=== PATIENT | female | born 1990 | race Caucasian/White ===

== ENCOUNTER 2020-04-25 19:26 | Outpatient (CLI) | payer OTHER, SELFPAY ==
--- NOTE | ~2020-04-25 | MR_ITS ---
EXAMINATION: MR brain/brain stem wo/w con DATE: 04/25/2020 21:03 INDICATION: Hyperprolactinemia. TECHNIQUE: Magnetic resonance imaging (MRI) of the brain and brainstem was performed without and with 10 mL MultiHance intravenous contrast. Whole-brain sequences included sagittal T1-weighted FSE, axia l diffusion-weighted FS EPI, axial T2*-weighted GRE, axial T2-weighted FLAIR Propeller, and axial T2- weighted Propeller. Small hjbdl-gk-flov sequences included sagittal and coronal T1-weighted FSE cente red at the pituitary. Postcontrast sequences included small vyptv-ue-[id number] coronal T1-weighted FSE in a time course and sagittal T1-weighted FSE and whole-brain axial T1-weighted FSE. Apparent diffusion coefficient (ADC) maps were created. COMPARISON: None. FINDINGS: The pituitary is normal in size with height of 6 mm and concave superior margin. The infund ibulum is at the midline. There is no intracranial hemorrhage, acute infarction, or abnormal intracra nial mass lesion. The ventricles are normal in size. The orbits are normal. The paranasal sinuses are clear. The mastoid air cells are normal. IMPRESSION: 1. Normal brain. Normal pituitary. Reviewed, dictated and finalized at location A.
[2020-04-25 20:21] LABS: Estimated Glomerular Filt Rate > 60
== END 2020-04-25 19:27 | disposition home or self-care (01) ==
PROVIDERS: PCP Family Medicine; Visit Provider Physician Assistant
DX: E22.1 Hyperprolactinemia (principal)
CPT/HCPCS: 36415; 70553; A9577

== ENCOUNTER 2022-03-05 10:25 | Emergency (ER) | payer BC, SELFPAY ==
--- NOTE | 2022-03-05 10:28 | ED.URI ---
HPI - URI/Sore Throat General Chief Complaint: Upper Respiratory Infection Stated Complaint: Sore Throat,Runny Nose,Congestion Time Seen by Provider: 03/05/22 10:28 Source: patient Mode of arrival: ambulatory Limitations: no limitations History of Present Illness HPI Narrative: Ms. Martinez is a 31-year-old female patient presenting to the clinic today with complaints of cough, sore throat, and congestion x4 days. She reports no known exposure to anyone with COVID, flu, or strep. Is concerned that she may have strep throat. She denies any fever or chills. MD elicited complaint: cough, sore throat and nasal congestion Related Data Home Medications Medication Instructions Recorded Confirmed doxycycline hyclate 50 mg PO DAILY 03/05/22 03/05/22 Allergies Allergy/AdvReac Type Severity Reaction Status Date / Time No Known Allergies Allergy Verified 03/05/22 10:49 Review of Systems Review of Systems: Pertinent positives per HPI. Patient denies any fever, chills, rash, headache, visual changes, dizziness, shortness of breath, chest pain, palpitations, nausea, vomiting, diarrhea, constipation, abdominal pain, or any urinary issues. [facility] Past Medical History Medical History (Updated 03/05/22 @ 11:04 by Daryl Wheat APRN) Gave to child recently 01/27/2019 Surgical History Surgical History H/O dilation and curettage (~2018) Family History Family History Grandparent Family history of elevated blood lipids Social History Social History Smoking status: Never smoker Alcohol intake: current Drinks per week: 4 Alcohol use details: beer wine Comments At the time of my signature, I reviewed and agree with the nursing past medical, surgical, social, and family history. There is no relevant family history pertinent to the patient complaint. Exam Narrative: General: Well-developed, well nourished, in no apparent distress Head: Normocephalic, atraumatic Eyes: Pupils equally round and reactive to light bilaterally, EOM intact, sclera and conjunctive clear, no discharge, lids normal Ears: TMs intact and clear, ear canals clear, no drainage, grossly hearing normal. Nose: Nares patent, clear nasal discharge, moderate inflammation, no sinus tenderness. Mouth: Oral pharynx without masses, good dentition, MMM. Postnasal drip, 1 small white ulcerated area to the left oropharynx Neck: Supple, trachea midline, no enlargement of anterior or posterior cervical nodes, no thyroid masses or goiter palpable. Cardio: Regular rate and rhythm, s1 and s2 normal, no murmur appreciated. Resp: Clear to auscultation bilaterally, no rhonchi, rales, wheezing or rubs Course Course Emergency Course: Portions of this record may have been created with voice recognition software. Level of Care: Express Care Visit Vital Signs Vital signs: Vital signs reviewed MDM - URI/Sore Throat MDM Narrative Medical decision making narrative: At the time of visit patient is resting comfortably on the exam table. She reports cough, congestion, and sore throat x4 days. Is concerned that she may have a strep throat. Strep screen was completed and is negative in the clinic. She appears to have an upper respiratory infection/pharyngitis and supportive measures were discussed with patient and she voiced understanding of discharge instructions. Differential Diagnosis Differential diagnosis: Likely upper respiratory infection, croup, otitis media, sinusitis, viral infection, bronchitis, influenza and pharyngitis Discharge Plan Discharge Clinical Impression: Upper respiratory infection Qualifiers: URI type: unspecified URI Qualified Code(s): J06.9 - Acute upper respiratory infection, unspecified Pharyngitis Qualifiers: Pharyngitis/tonsillitis et
[2022-03-05 10:35] VITALS: BP 108/78; PULSE 81; RESP 18; TEMP 37.2; O2SAT 100
== END 2022-03-05 11:12 | disposition home or self-care (01) ==
PROVIDERS: Emergency Provider Nurse Practitioner Family; PCP Family Medicine
DX: J06.9 Acute upper respiratory infection, unspecified (principal); J02.9 Acute pharyngitis, unspecified
CPT/HCPCS: 87081; 87880; 99213; G0463

== ENCOUNTER 2022-05-30 22:22 | Emergency (ER) | payer BC, SELFPAY ==
--- NOTE | ~2022-05-30 | XR_ITS ---
XR chest 2V 05/30/2022 23:49 Indication: Chest pain. Procedure: 2 view chest Comparison: No prior studies for comparison. Findings: Prominent left nipple shadow. Scoliosis. Heart size normal. No focal air space disease, pul monary edema, pleural effusion or suspected pneumothorax. Impression: 1: No acute cardiopulmonary disease. Reviewed, dictated and finalized at location A. Impression: 1: No acute cardiopulmonary disease.
--- NOTE | ~2022-05-30 | CT_ITS ---
EXAMINATION: CT abdomen pelvis w con DATE: 05/30/2022 23:46 INDICATION: Lower abdominal pain TECHNIQUE: Computed tomography (CT) of the abdomen and pelvis was performed without intravenous contr ast. The dose-length product was 228.53 mGy-cm. Automated exposure control and iterative reconstructi on technique were employed. COMPARISON: None. FINDINGS: Lung bases are unremarkable. Heart size normal. No significant vascular abnormality. No lym phadenopathy. There is 1.9 cm left adnexal cyst, likely ovarian. Prominent parametrial vessels are no destinee. Small amount of free fluid in the pelvis. The liver, spleen, pancreas, adrenal glands and kidneys are unremarkable. Gallbladder is present. The re is a left lower quadrant enteroenteric intussusception noted just above the left iliac fossa which may represent incidental transient intussusception. No significant bowel distention to suggest obstr uction. IMPRESSION: 1. 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 2: Left adnexal cyst measuring 1.9 cm, likely ovarian. Trace free fluid in the pelvis. Reviewed, dictated and finalized at location A.
[2022-05-30 22:24] VITALS: BP 116/72; PULSE 60; RESP 16; TEMP 37; O2SAT 99
--- NOTE | 2022-05-30 22:27 | ECG_ITS ---
Measurements Intervals [place] Rate: 64 P: 67 IN: 187 QRS: 75 QRSD: 109 T: 73 QT: 383 QTc: 397 Interpretive Statements SINUS RHYTHM INCOMPLETE RIGHT BUNDLE BRANCH BLOCK BORDERLINE ECG Electronically Signed On 05-31-2022 7:27:55 CDT by Edis Hanley D.O.
[2022-05-30 22:41] LABS: Basophils Percent Auto 0.4 % (0.2-1.2); Eosinophils Percent Auto 0.3 % (0-4.4); Hematocrit 37.2 % (37.0-47.0); Hemoglobin 12.1 g/dL (12.0-15.0); Immature Granulocyte Absolute 0.01 K/mm3 (0.00-0.031); Immature Granulocyte Percent A 0.1 % (0-0.5); Lymphocytes Absolute Auto 1.96 K/mm3 (0.9-3.2); Lymphocytes Percent Auto 27.2 % (18.3-44.2); Mean Corpuscular HGB Conc 32.5 g/dl (32-36); Mean Corpuscular Hemoglobin 29.5 pg (26-34); Mean Corpuscular Volume 90.7 fl (80-100); Monocytes Absolute Auto 0.4 K/mm3 (0.1-0.6); Monocytes Percent Auto 5.3 % (2.6-8.5); Neutrophils Absolute Auto 4.8 K/mm3 (1.3-6.7); Neutrophils Percent Auto 66.7 % (45.5-73.1); Platelet Count Result 271 k/mm3 (150-375); Red Cell Distribution Width 12.5 % (11.5-14.5); White Blood Count 7.2 K/mm3 (4.5-10.0)
[2022-05-30 22:50] LABS: Alanine Aminotransferase 14 U/L (6-35); Albumin Level 4.7 g/dL (3.5-5.1); Alkaline Phosphatase 53 U/L (38-126); Anion Gap 9 mmol/L (8-16); Aspartate Amino Transferase 19 U/L (14-36); Bilirubin,Total 0.7 mg/dL (0.2-1.3); Blood Urea Nitrogen 8 mg/dL (7-17); Calcium 9.2 mg/dL (8.4-10.2); Carbon Dioxide 26 mmol/L (22-30); Chloride 103 mmol/L (98-107); Estimated CRCL calculation 76 ml/min; Estimated Glomerular Filt Rate > 60; Glucose 94 mg/dL (65-110); Lipase 140 U/L (23-300); Sodium 138 mmol/L (137-145)
--- NOTE | 2022-05-30 22:50 | ED.CHESTPAIN ---
HPI - Chest Pain General Chief Complaint: Chest Pain Stated Complaint: Chest and back pain Time Seen by Provider: 05/30/22 22:31 History of Present Illness HPI narrative: 32-year-old female presents to the emergency room for evaluation of midsternal chest pain that is worse after eating and when laying flat. Reports pain radiates into the back. Pain has been present intermittently since 2:00 this afternoon. States pain lasts for about 30 minutes and describes it as a squeezing and viselike. Pain is not preceded by any factors. Has never had the pain before. Also is complaining of lower abdominal pain, describes it as cramping. Denies any dysuria, constipation or diarrhea. Patient denies fevers. Related Data Home Medications Medication Instructions Recorded Confirmed doxycycline hyclate 50 mg capsule 50 mg PO DAILY 03/05/22 03/05/22 Allergies Allergy/AdvReac Type Severity Reaction Status Date / Time No Known Allergies Allergy Verified 05/30/22 22:26 Review of Systems Review of Systems: CONSTITUTIONAL: Denies fever, chills, or sweats. EYES: Denies visual changes, redness, or discharge. ENT: Denies rhinorrhea, congestion, sore throat, or otalgia. CARDIOVASCULAR: Denies chest pain, palpitations, or edema. RESPIRATORY: Denies cough or dyspnea. GASTROINTESTINAL: Reports lower abdominal pain, epigastric GENITOURINARY: Denies dysuria or hematuria. SKIN: Denies rash or itching. MUSCULOSKELETAL: Denies back pain, joint pain, or myalgia. NEUROLOGIC: Denies headache, numbness, dizziness, or weakness. PSYCHIATRIC: Denies anxiety or depression. [facility] Past Medical History Medical History (Updated 05/31/22 @ 00:52 by Augustus Edward APRN) Gave to child recently 01/27/2019 Surgical History Surgical History H/O dilation and curettage (~2018) Family History Family History Grandparent Family history of elevated blood lipids Social History Social History Smoking status: Never smoker Alcohol intake: current Drinks per week: 4 Alcohol use details: beer wine Exam Narrative: GENERAL: Well-appearing, well-nourished, no physical limitations, and in no acute distress. HEAD: Normocephalic, atraumatic. EYES: Conjunctivae normal, PERRLA and EOMI. NECK: Supple. No adenopathy or masses CHEST: Clear to auscultation. No respiratory distress. No wheezes rales or rhonchi. No tenderness. HEART: Regular rate and rhythm. No murmur heard. Normal peripheral pulses. ABDOMEN: Soft, lower abdominal tenderness, nondistended, normal active bowel sounds. EXTREMITIES: Normal range of motion. No edema. No clubbing or cyanosis SKIN: Warm, dry, no rash. No noted wounds NEURO: No focal deficits. Alert and oriented x3. MAEW. CN's II-XI intact bilaterally, normal gait PSYCH: Cooperative. Normal mood and affect. Course Vital Signs Vital signs: Vital Signs Temperature 37.0 C 05/30/22 22:24 Pulse Rate 60 05/30/22 22:24 Respiratory Rate 16 05/30/22 22:24 Blood Pressure 116/72 05/30/22 22:24 Pulse Oximetry 99 05/30/22 22:24 Temperature 37.0 C 05/30/22 22:24 Pulse Rate 72 05/31/22 01:13 Respiratory Rate 18 05/31/22 01:13 Blood Pressure 120/73 05/31/22 01:13 Pulse Oximetry 98 05/31/22 01:13 MDM - Chest Pain Lab Data Result diagrams: 05/30/22 22:36 05/30/22 22:36 Labs: Lab Results 05/30/22 05/30/22 05/30/22 Range/Units 22:36 22:36 22:36 WBC 7.2 (4.5-10.0) K/mm3 RBC 4.10 L (4.2-5.4) M/mm3 Hgb 12.1 (12.0-15.0) g/dL Hct 37.2 (37.0-47.0) % MCV 90.7 (80-100) fl MCH 29.5 (26-34) pg MCHC 32.5 (32-36) g/dl RDW 12.5 (11.5-14.5) % Plt Count 271 (150-375) k/mm3 MPV 10.0 (7.4-10.4) fl Immature Gran % (Auto) 0.1 (0-0.5) % Neut % (Auto
[2022-05-30 22:53] LABS: Partial Thromboplastin Time 31.6 SECONDS (22.3-36.8); Prothrombin Time 13.1 Seconds (11.1-14.7)
[2022-05-30 23:19] LABS: Troponin I < 0.012 ng/mL (0.000-0.034)
[2022-05-31] MEDS: BELLADONNA ALK/PHENOB ELIX 10 ML, MAG HYDROX/ALUMINUM HYD/SIMETH 30 ML, LIDOCAINE HCL 2... PO (00:18)
[2022-05-31 00:43] LABS: Appearance Urine Slightly Cloudy (Clear); Bilirubin Urine Negative (Negative); Blood Urine Trace-lysed (Negative); Glucose Urine UA Negative (Negative); Ketones Urine 2+ mg/dL (Negative); Leukocyte Esterase Ur 2+ LEU/UL (Negative); Nitrate Urine Negative (Negative); Protein Urine Negative (Negative); Specific Grav Ur 1.015 (1.001-1.035); Urobilinogen Urine 0.2 mg/dL (<2.0)
[2022-05-31 00:44] LABS: Add Urine Microscopic? YES; Color Urine Light Yellow (Yellow)
[2022-05-31 01:03] LABS: Bacteria Urine Trace /hpf; Mucus Urine Rare /lpf; Squamous Epithelial Cell Urine Many /hpf (Few)
[2022-05-31 01:13] VITALS: BP 120/73; PULSE 72; RESP 18; O2SAT 98
== END 2022-05-31 01:21 | disposition home or self-care (01) ==
PROVIDERS: Emergency Medicine; Emergency Provider Nurse Practitioner Family; PCP Family Medicine
DX: N83.202 Unspecified ovarian cyst, left side (principal); K21.9 Gastro-esophageal reflux disease without esophagitis; R10.9 Unspecified abdominal pain; K63.2 Fistula of intestine; I45.10 Unspecified right bundle-branch block
CPT/HCPCS: 36415; 71046; 74177; 80053; 81001; 81025; 83690; 84484; 85025; 85610; 85730; 93005; 99284; A9270; Q9967

== ENCOUNTER → 2022-06-04 08:12 | Outpatient (CLI) | payer BC, SELFPAY ==
--- NOTE | ~2022-06-04 | US_ITS ---
EXAMINATION: US abdomen complete DATE: 06/04/2022 08:56 INDICATION: Upper abdominal pain TECHNIQUE: Multiple grayscale and Doppler ultrasound images of the abdomen were obtained. COMPARISON: None available FINDINGS: Bowel gas obscures visualization of the pancreas. The visualized portions of the pancreas a re unremarkable. The liver is normal with normal echogenicity and echotexture. No surface nodularity. Normal hepatopetal flow in the main portal vein. The gallbladder is normal with no abnormal wall thi ckening, pericholecystic fluid or stones. The normal common bile duct measures 3 mm. There was no son ographic Rangel sign. The visualized portions of the aorta and inferior vena cava are normal. The right kidney measures 10.5 x 3.9 x 4.4 cm. The left kidney measures 11.5 x 5.5 x 4.7 cm. The kidn eys demonstrate normal parenchymal echogenicity. There is no hydronephrosis. The spleen is normal in appearance and measures 9.0 cm. IMPRESSION: 1. No sonographic correlate for the patient's symptoms. Reviewed, dictated and finalized at location B.
== END ==
LOC: EXPGOSH 08:14 → EXPGOSHRAD 06-05 14:45
PROVIDERS: PCP Nurse Practitioner; Visit Provider Nurse Practitioner
DX: R10.10 Upper abdominal pain, unspecified (principal)
CPT/HCPCS: 76700

== ENCOUNTER 2022-06-18 09:37 | Outpatient (CLI) | payer BC, SELFPAY ==
--- NOTE | ~2022-06-18 | NM_ITS ---
EXAMINATION: NM hepatobiliary wo pharm DATE: 06/18/2022 12:51 INDICATION: Right upper quadrant abdominal pain. Atypical chest pain. COMPARISON: Ultrasound 06/04/2022 TECHNIQUE: 4.9 mCi Tc-99m mebrofenin (Choletec) was administered intravenously. Scintigraphic images of the abdomen were obtained for one hour. Then, the patient drank 8 oz Ensure, and imaging was cont inued for 60 minutes. FINDINGS: There is normal clearance of radiotracer from the blood pool. There is homogeneous tracer u ptake by the liver. Activity progresses to the bowel and gallbladder. Gallbladder ejection fraction (GBEF) was 0%. Note that with this technique, normal GBEF >= 33%. IMPRESSION: 1. Low gallbladder ejection fraction, consistent with gallbladder dysfunction and/or chronic cholecy stitis. Reviewed, dictated and finalized at location A. IMPRESSION: 1. Low gallbladder ejection fraction, consistent with gallbladder dysfunction and/or chronic cholecystitis.
== END 2022-06-18 09:38 | disposition home or self-care (01) ==
PROVIDERS: PCP Nurse Practitioner; Visit Provider Nurse Practitioner
DX: R14.0 Abdominal distension (gaseous) (principal); R07.89 Other chest pain
CPT/HCPCS: 78226; A9537

== ENCOUNTER 2022-06-19 00:46 | Day surgery (SDC) | payer BC, SELFPAY ==
[2022-06-17 09:31] VITALS: BMI 20.6
--- NOTE | 2022-06-18 13:19 | P.PNAN_ITS ---
Anes - Initial Pre Proc Eval Procedure: Operation Date: 06/19/22 13:30 Proposed Procedures p Esophagogastroduodenoscopy & Colonoscopy - Jayme Martinez MD Date/Time: 06/18/22 13:19 Surgeon: Jayme Martinez MD Pre Op Diagnosis: abdom. pain, intussusception, atypical chest pain Patient Data Age: 32 Gender: F Height: 1.63 m Weight: 54.5 kg Allergies Allergy/AdvReac Type Severity Reaction Status Date / Time No Known Allergies Allergy Verified 06/19/22 12:31 Home Medications Medication Instructions Recorded Confirmed Type doxycycline hyclate 50 mg capsule 50 mg PO DAILY 03/05/22 06/19/22 History clindamycin phosphate 1 % topical 1 applic topical DAILY 06/02/22 06/19/22 History gel dicyclomine 10 mg capsule 10 mg PO TID PRN abdominal pain 06/02/22 06/19/22 Rx #30 caps ivermectin 1 % topical cream 1 applic topical DAILY 06/02/22 06/19/22 History (Soolantra) omeprazole magnesium 20 mg 20 mg PO DAILY #14 caps 06/02/22 06/19/22 Rx capsule,delayed release (Acid [employer] Products Sales Engineer (omeprazole)) tretinoin 0.025 % topical cream 1 applic topical QHS 06/02/22 06/19/22 History prenat.vits,francisco,[id number] 1 tablet PO DAILY 06/19/22 06/19/22 History Patient hx anesthesia problems: none Family hx anesthesia problems: none Results Review: All pre-operative results and documents have been reviewed as part of the pre- operative evaluation. [facility] Past Medical History Medical History Gave to child recently 01/27/2019 GERD (gastroesophageal reflux disease) Intussusception Rosacea Surgical History Surgical History H/O dilation and curettage (~2017) Family History Family History Grandparent Family history of elevated blood lipids Social History Social History Smoking status: Never smoker Alcohol intake: current Drinks per week: 4 Alcohol use details: beer wine Substance use: never Substance use type: does not use Gender identity (if verbalized by the patient): Female Sexual Orientation (if Verbalized by the Patient): Straight or Heterosexual Spiritual care concerns: No Agree to blood products: Yes Anes - Eval Final PreProcedure Day of Procedure 06/18/22 13:19 Patient weight: normal Heart: regular rate and rhythm Lungs: clear to auscultation Airway: Mallampati scale class II Neurological: alert and oriented Last oral intake: >/= 8 hours ASA classification: II Emergent: no Anesthetic plan: proceed Anesthesia type and monitoring: general GIVS and standard monitoring Results Review: All pre-operative results and documents have been reviewed as part of the pre- operative evaluation. Informed Consent: The patient's anesthetic plan and its attendant risks and benefits were discussed with the patient/family/POA. Questions were solicited and answers provided to the satisfaction of the patient/family/POA.
[2022-06-19 12:33] VITALS: BP 102/66; PULSE 67; RESP 18; TEMP 37.2; O2SAT 100; BMI 20.2
[2022-06-19] MEDS: LACTATED RINGERS 1,000 ML 150 ML IV CONT ×2 (12:35→13:58)
--- NOTE | 2022-06-19 12:50 | PM.HPGS ---
History of Present Illness History of Present Illness Consent: Risks, benefits, and alternatives have been discussed and questions answered. Patient agrees to proceed with procedure. Chief complaint: abdom. pain, intussusception, atypical chest pain Narrative: Carolee Martinez is a 32 year old female who is referred for abdominal pain.? She presented to [facility] ER 05/30/2022 for midsternal chest pain that she described as squeezing and radiating to the back along with lower abdominal pain described as cramping.? She states with the chest pain insert that prompted her to go the ER she had some nausea and vomiting up undigested food.? ? She has not had a similar episode like this prior to past. CT completed in the ED that showed left adnexal ovarian cyst and resolved left lower quadrant enteroenteric intussusception that was likely transient and incidental (recs reviewed).? CBC, LFT, and lipase were normal (recs reviewed).? She was told in Er likely r/t to ovarian cyst rupture. 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 PCP ordered abd US as they felt it was gallbladder and placed her on Dicyclomine and Omeprazole 20 mg daily.? Subsequent HIDA scan showed gallbladder dysfunction with 0% ejection fraction. She reports that over the last few weeks she has have generalized abdominal cramping and abdominal bloating that coincide together. No relation to bowel habits and bowel habits dont seem to change the cramping or improve.? This comes and goes and is not constant.? This has not been occurring daily.? She denies any further nausea or vomiting. She is having BM. Denies fevers. She does state on Wednesday she had a ?oily? stool and over the last week has become less oily.? She typically has a bowel movement 1-2 times per day denies any chronic diarrhea.? She denies any black or bloody stools.?? She has previously tried massage and chiropractic adjustments with no change. Denies any family hx of CRC or IBD. Currently on Omeprazole 20 mg daily and has only taken Dicyclomine 10 mg one time. Review of Systems Review of Systems: All systems reviewed & are unremarkable except as noted in HPI and below PMFSH Past Medical History Medical History Gave to child recently 01/27/2019 GERD (gastroesophageal reflux disease) Intussusception Rosacea Surgical History Surgical History H/O dilation and curettage (~2017) Family History Family History Grandparent Family history of elevated blood lipids Social History Social History Smoking status: Never smoker Alcohol intake: current Drinks per week: 4 Alcohol use details: beer wine Substance use: never Substance use type: does not use Gender identity (if verbalized by the patient): Female Sexual Orientation (if Verbalized by the Patient): Straight or Heterosexual Spiritual care concerns: No Agree to blood products: Yes Meds Home Medications and Allergies Home Medications Medication Instructions Recorded Confirmed Type doxycycline hyclate 50 mg capsule 50 mg PO DAILY 03/05/22 06/19/22 History clindamycin phosphate 1 % topical 1 applic topical DAILY 06/02/22 06/19/22 History gel dicyclomine 10 mg capsule 10 mg PO TID PRN abdominal pain 06/02/22 06/19/22 Rx #30 caps ivermectin 1 % topical cream 1 applic topical DAILY 06/02/22 06/19/22 History (Soolantra) omeprazole magnesium 20 mg 20 mg PO DAILY #14 caps 06/02/22 06/19/22 Rx capsule,delayed release (Acid Flexible Nanny (omeprazole)) tretinoin 0.025 % topical cream 1 applic topical QHS 06/02/22 06/19/22 History prenat.vits,francisco,[id number] 1 tablet PO DAILY 06/19/22 06/19/22 History Allergies Allergy/AdvReac Type Severity Reactio
--- NOTE | 2022-06-19 13:44 | SUR.OPER ---
EGD end 1337 COLONOSCOPY START 134
[2022-06-19 14:03] VITALS: BP 87/46; PULSE 65; RESP 15; O2SAT 99
[2022-06-19 14:13] VITALS: BP 94/53; PULSE 64; RESP 17; O2SAT 100
[2022-06-19 14:23] VITALS: BP 96/61; PULSE 62; RESP 22; O2SAT 100
== END 2022-06-19 14:45 | disposition home or self-care (01) ==
PROVIDERS: PCP Nurse Practitioner; Visit Provider Internal Medicine Gastroenterology
PROC: 0DJ08ZZ Inspection of Upper Intestinal Tract, Via Natural or Artificial Opening Endoscopic (ICD-10-PCS; CPT 43235; principal; 2022-06-19 13:30)
DX: R19.4 Change in bowel habit (principal); K57.30 Diverticulosis of large intestine without perforation or abscess without bleeding; R10.13 Epigastric pain; K21.9 Gastro-esophageal reflux disease without esophagitis
CPT/HCPCS: 45378; 43239; 87081; J2001; J2704; J7120

== ENCOUNTER 2022-07-03 09:54 | Outpatient (CLI) | payer BC, SELFPAY ==
--- NOTE | ~2022-07-03 | XR_ITS ---
SMALL BOWEL SERIES ONLY INDICATION: Intussusception seen on prior CT examination. TECHNIQUE: Serial plain films and fluoroscopic spot films are performed following oral demonstration of thin barium. 0.5 minutes of fluoroscopy time. 10 images submitted. COMPARISON: None FINDINGS: Barium was followed sequentially through the small bowel. The mucosal pattern is unremarka ble. No evidence for stricture, polyp, diverticula or obstruction of flow of contrast. Transit time is normal. No evidence for intussusception on the current examination. IMPRESSION: 1: Normal small bowel series. Reviewed, dictated and finalized at location A.
== END 2022-07-03 09:55 | disposition home or self-care (01) ==
PROVIDERS: PCP Family Medicine; Visit Provider Nurse Practitioner
DX: R14.0 Abdominal distension (gaseous) (principal); R10.9 Unspecified abdominal pain; R07.89 Other chest pain; K56.1 Intussusception
CPT/HCPCS: 74250